=== PATIENT | female | born 1945 | race Two or more races ===

== ENCOUNTER 2024-12-22 11:50 | Emergency (ER) | payer OTHER ==
[~2024-12-22] VITALS: Ht 170.2 cm; Wt 59.0 kg
--- NOTE | 2024-12-22 12:08 | ED.PDOC ---
History of Present Illness HPI Comments Natalie Means is a 79-year-old female brought in by ambulance with chief complaint of 2hrs ago presenting episode of generalized weakness. The patient report she started feeling dizzy and she felt weakness on her legs. The EMS team report found the patient alert but weak, BP was 72/40mmhg, IV fluid were started on the way to the ED, 500 cc of NS were administrated. The patient denies focal motor or neurologic deficits, chest pain, headache, abdominal pain or other symptoms. On the ED: BP was 142/85mmHg. HR: 64bpm, blood glucose: 96mg/dl. The patient will be assessed. past medical history of Afib, pacemaker CVA x2 (2021) and CHF Attestation note: Dr. Lobo: I was the supervising attending for this ED encounter. Please see the resident's notes. I was available for questions and consultations. Differential diagnosis: Includes but not limited to thyroid disease, encephalopathy, electrolyte abnormality, sepsis, infection, intracranial pathology, drug adverse effects, arrhythmia, kidney insufficiency, ACS, CVA, malignancy, anemia MDM: patient presented with the above HPI.-generalized weakness-----workup was initiated. patient was found with the above mentioned diagnosis. the following medications were ordered: please refer to order lists of meds and tests obtained by myself Dr. Lobo. Patient ED course and VS have been stabilized. Patient has been reassessed in the ED and remained in a stable condition. Pertinent incidental findings were discussed with the patient and/or family. Patient/family voices understanding and is agreeable with plan. Patient has been observed in the ED adequate length of time to insure improvement/stability. Escalation of care considered: Consideration of escalation to observation or admission Orthostatics were obtained that were unremarkable. Patient is ambulatory in the ED and back to her baseline. Family member at bedside. Patient received fluid hydration earlier which brought her vital signs back to stable. She is no longer symptomatic. Patient was DISCHARGED home in a stable condition. All the reports of any imaging studies that were ordered by myself were reviewed by myself. 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 SOCIAL Hx Family History Family History: Reviewed,noncontributory to illness Social History Smoker: Non-Smoker Alcohol: Denies ETOH Use Drugs: Denies Drug Use Lives In: Home Constitutional: reports: weakness; denies: chills, diaphoresis, fatigue, fever, malaise, sweats, others EENTM: denies: blurred vision, double vision, ear bleeding, ear discharge, ear drainage, ear pain, ear ringing, eye pain, eye redness, hearing loss, mouth pain, mouth swelling, nasal discharge, nose bleeding, nose congestion, nose pain, photophobia, tearing, throat pain, throat swelling, voice changes, others Respiratory: denies: cough, hemoptysis, orthopnea, SOB at rest, shortness of breath, SOB with excertion, stridor, wheezing, others Cardiovascular: denies: chest pain, dizzy spells, diaphoresis, Dyspnea on exertion, edema, irregular heart beat, left arm pain, lightheadedness, palpitations, PND, syncope, others Gastrointestinal: denies: abdomen distended, abdominal pain, blood streaked bowels, constipated, diarrhea, dysphagia, difficulty swallowing, hematemesis, melena, nausea, poor appetite, poor fluid intake, rectal bleeding, rectal pain, vomiting, others Genitourinary: denies: abnormal vagina bleeding, burning, dyspareunia, dysuria, flank pain, frequency, hematuria, incontinence, pain, , vagina discharge, urgency, others Neurological: reports: dizziness; denies: fainting, headache, left sided numbness, left sided weakness, numbness, paresthesia, pre-existing deficit, right sided numbness, right sided weakness, seizure, speech problems, tingling, tremors, weakness, others Musculoskeletal: denies: back pain, gout, joint pain, joint swelling, muscle pain, muscle stiffness, neck pain, others Integumetry: denies: bruises, change in color, change in hair/nails, dryness, laceration, lesions, lumps, rash, wounds, others Allergic/Immunocompromised: denies: Difficulty Healing, Frequent Infections, Hives, Itching, others Hematologic/Lymphatic: denies: anemia, blood clots, easy bleeding, easy bruising, swollen glands, others Physical Exam Exam Comments Alert, oriented x3, Orthostatic VS WNL, Normal gait Patient back to baseline General Appearance: No Apparent Distress, Normal HEENT: Normal ENT Inspection, Pharynx Normal, TMs Normal Neck: Full Range of Motion, Non-Tender, Normal, Normal Inspection Respiratory: Chest Non-Tender, Lungs Clear, No Accessory Muscle Use, No Respiratory Distress, Normal Breath Sounds Cardiovascular: No Edema, No JVD, No Murmur, No Gallop, Normal Peripheral Pulses, Regular Rate/Rhythm Breast Exam: Deferred Gastrointestinal: No Organomegaly, Non Tender, No Pulsatile Mass, Normal Bowel Sounds, Soft Genitalia: Deferred Pelvic: Deferred Rectal: Deferred Extremities: No calf tenderness, Normal capillary refill, Normal inspection, Normal range of motion, Non-tender, No pedal edema Musculoskeletal : Apperance: Normal Neurologic: Alert, lathmaker II-XII nml as Tested, No Motor Deficits (No motor or neurologicc deficit on face and all 4 extremities. ), Normal Affect, Normal Mood, No Sensory Deficits, Other (Gait: the patient walk with out difficulty. Orthostatic VS WNL. ) Cerebellar Function: Normal Reflexes: Normal Skin: Dry, Normal Color, Warm Lymphatic: No Adenopathy Was a procedure done? Was a procedure done?: No Differential Dx Considerations may include: #Near syncope #Hypotension #Vasovagal reflex X-Ray, Labs, Meds, VS Vital Signs Date Time Temp Pulse Resp B/P (MAP) Pulse Ox O2 Delivery O2 Flow Rate FiO2 12/22/24 14:55 65 18 120/63 (82) 96 12/22/24 14:50 70 16 128/74 (92) 96 12/22/24 14:45 66 19 115/68 (84) 96 12/22/24 13:05 97.7 63 10 138/77 (97) 95 97.7 12/22/24 13:05 Room Air* 0 21 12/22/24 12:20 68 16 97 Room Air* 0 21 12/22/24 12:20 97.7 68 16 135/58 (83) 97 97.7 10/4/25 11:53 97.5 64 18 142/85 95 97.5 12/22/24 11:51 68 Lab Test 12/22/24 13:30 12/22/24 12:40 12/22/24 12:37 Range/Units Troponin I High Sensitivity 3 L 3 L </=34 ng/L Urine Color Yellow Yellow Urine Clarity Clear Clear Urine pH 5.5 5.0-9.0 Urine Specific [place] 1.020 1.001-1.035 Urine Protein Negative Negative Urine Ketones Negative Negative Urine Blood Negative Negative /uL Urine Nitrite Negative Negative Urine Bilirubin Negative Negative Urine Urobilinogen Normal Negative mg/dL Urine Leukocyte Esterase 3+ Negative /uL Urine RBC 2 0 - 4 /hpf Urine Microscopic WBC 15 H 0-5 /HPF Urine Squamous Epithelial Cells Few <5 /hpf Urine Bacteria Few H None Seen /hpf Urine Glucose Normal Normal mg/dL White Blood Count 4.8 4.4-10.8 10^3/uL Red Blood Count 4.14 4.0-5.20 10^6/uL Hemoglobin 12.2 12.2-16.2 g/dL Hematocrit 36.8 36.0-46.0 % Mean Corpuscular Volume 88.8 80.0-100.0 fL Mean Corpuscular Hemoglobin 29.5 28.0-32.0 pg Mean Corpuscular Hemoglobin Concent 33.2 32.0-36.0 g/dL Red Cell Distribution Width 15.7 H 11.8-14.3 % Platelet Count 144 140-450 10^3/uL Mean Platelet Volume 9.2 6.9-10.8 fL Neutrophils (%) (Auto) 69.5 37.0-80.0 % Lymphocytes (%) (Auto) 17.7 10.0-50.0 % Monocytes (%) (Auto) 9.1 0.0-12.0 % Eosinophils (%) (Auto) 3.3 0.0-7.0 % Basophils (%) (Auto) 0.4 0.0-2.0 % Neutrophils # (Auto) 3.4 1.6-8.6 10 ^3/uL Lymphocytes # (Auto) 0.9 0.4-5.4 10 ^3/uL Monocytes # (Auto) 0.4 0-1.3 10 ^3/uL Eosinophils # (Auto) 0.2 0-0.8 10 ^3/uL Basophils # (Auto) 0 0-0.2 10 ^3/uL Nucleated Red Blood Cells 0.0 % Sodium Level 143 136-145 mmol/L Potassium Level 4.0 3.5-5.1 mmol/L Chloride Level 108 H 98-107 mmol/L Carbon Dioxide Level 26 20-31 mmol/L Anion Gap 9 5-15 Blood Urea Nitrogen 19 9-23 mg/dL Creatinine 0.95 0.550-1.02 mg/dL Glomerular Filtration Rate Calc 61 >90 mL/min BUN/Creatinine Ratio 20.0 10.0-20.0 Serum Glucose 96 74-106 mg/dL Lactic Acid Level 1.2 0.4-2.0 mmol/L Calcium Level 9.0 8.7-10.4 mg/dL Total Bilirubin 0.9 0.2-1.0 mg/dL Aspartate Amino Transferase (AST) 36 13-40 U/L Alanine Aminotransferase (ALT) 28 7-40 U/L Alkaline Phosphatase 98 46-116 U/L B-Type Natriuretic Peptide 280.98 0-100 pg/mL Total Protein 7.3 5.7-8.2 g/dL Albumin 4.2 3.2-4.8 g/dL X-Ray, Labs, Meds, VS Comment 12:35 The patient was reassessed. The patient is alert x3 Alert, oriented x3, Normal gait Patient back to baseline VS: WNL CBC: Hb:12.2mg/dl WBC: 4.8x10e3/ul. CMP: Unremarkable Troponin: <3 14:00 UA Positive for UTI Orthostatic VS: WNL Time of 1ST Reevaluation: 12:35 Reevaluation 1ST: Improved Time of 2ND Reevaluation: 14:00 Reevaluation 2ND: Improved Patient Education/Counseling: Diagnosis, Treatment, Prognosis, Need For Follow Up Family Education/Counseling: Diagnosis, Treatment, Prognosis, Need For Follow Up SEPSIS Sepsis Screen Recent Procedure: No On Antibiotic Therapy: No Respiratory Rate >20: No Heart Rate >90: No Temp<36 C (96.8 F) or >38.3 C: No SBP <90 or MAP <65 mmHG: No New Acute Mental Status Change: No Is the patient on CPAP, BIPAP,: No IV fluid challenge completed?: No Physician Orders Electrocardigram (12/22/24 11:55) [facility] (12/22/24 ) Chest Portable (12/22/24 12:27) Orthostatic Vital Signs (12/22/24 14:12) Vital Signs Date Time Temp Pulse Resp B/P (MAP) Pulse Ox O2 Delivery O2 Flow Rate FiO2 12/22/24 14:55 65 18 120/63 (82) 96 12/22/24 14:50 70 16 128/74 (92) 96 12/22/24 14:45 66 19 115/68 (84) 96 12/22/24 13:05 97.7 63 10 138/77 (97) 95 97.7 12/22/24 13:05 Room Air* 0 21 12/22/24 12:20 68 16 97 Room Air* 0 21 12/22/24 12:20 97.7 68 16 135/58 (83) 97 97.7 12/22/24 11:53 97.5 64 18 142/85 95 97.5 12/22/24 11:51 68 Laboratory Tests Test 12/22/24 12:37 Lactic Acid Level 1.2 mmol/L (0.4-2.0) White Blood Count 4.8 10^3/uL (4.4-10.8) Departure 1 Departure Time of Disposition: 15:06 Impression: Primary Impression: Hypotensive episode Additional Impression: UTI (urinary tract infection) Disposition: 01 HOME / SELF CARE / HOMELESS Condition: Stable Additional Instructions: Additional instructions: Please read all instructions provided in this packet carefully. You MUST follow-up with your primary care/family doctor in 1 to 2 days. If you are unable to see your primary care/family doctor, please return to our emergency room for re-assessment and re-evaluation in 1 to 2 days. Return to the emergency room here in our facility or to the nearest ER [facility] if your symptoms change or worsen. CONSULTATIONS: you MUST Follow-up for consultation as soon as possible with: cardiology in 1-2 days. Please call for appointment. You MUST call the consultants office yourself to make an appointment. You may need to arrange that through your insurance and/or your primary/family doctor. If you are unable to see the technical services consultant in 1 to 2 days, you must return to our emergency room (or any other ER of your choice) for re-assessment and re- evaluation. Adequate fluid hydration. Although you have been discharged from the Emergency Department, this does not mean that you have a "clean bill of health". No definitive diagnosis for your symptoms has been made today. It is possible that you are in the process of developing a serious illness. This is why you must return to the ED without fail if any new or worsening symptoms develop. Fall precautions. Check your blood pressure at home at least 3 times a day. Below is a copy of your radiological report for follow up: [address] [address] Ph: [phone] DIAGNOSTIC IMAGING Diagnostic Imaging Report : [id number] Signed PATIENT: NATALIE CRUZ ACCT: [id number] UNIT: [id number] : 1945 LOC: ER ROOM / BED: / AGE / SEX: 79 / F ADM STATUS: REG ER SERVICE 1227 ORDERING PHYSICIAN: JOEL LOBO DO PROCEDURE(s): CXRP - CHEST PORTABLE REASON: gen weak, hypotension ORDER NUMBER(s): [id number], ACCESSION NUMBER(s): [id number] CHEST RADIOGRAPH Indication: gen weak, hypotension Technique: Single frontal view of the chest was obtained COMPARISON: None FINDINGS: Pacemaker/AICD in the left upper chest with a single cardiac lead Lungs: Clear Pleura: No effusion. No pneumothorax. Cardiomediastinal contours: Mild cardiomegaly Bones: Unremarkable IMPRESSION: 1. No acute cardiopulmonary disease. ATED BY: LEONEL BLANC MD DICTATED DATE/TIME: 12/22/24 131 SIGNED BY: LEONEL BLANC MD SIGNED DATE/TIME: 12/22/24 1310 CC: e-Prescriptions Nitrofurantoin Monohydrate Mac (Macrobid) 100 Mg Cap 100 MG PO BID for 7 Days, #14 CAP Prov: JOEL LOBO DO 12/22/24 Discharged With: Self Comments Goals of care discussed with the patient > 35 min. Discussed plan of care with Dr. Lobo Code status: Full code PCP: does not recall name Plan discussed with: Patient, the patient agrees with the plan. Critical Care Note Critical Care Time?: Yes (35 min-critical care time only) Stability Stability form required: No Heart Score Heart Score: Heart Score Response (Comments) Value History Slightly Suspicious 0 EKG Normal 0 Age >65 2 Risk Factors 1 or 2 risk factors 1 Troponin Normal limit 0 Total 3 STONE CALLE Dec 22, 2024 12:08 JOEL LOBO DO Dec 22, 2024 15:07
[2024-12-22 12:20] VITALS: PULSE 68; RESP 16; O2SAT 97
[2024-12-22 12:50] LABS: Hematocrit 36.8 % (36.0-46.0); Hemoglobin 12.2 g/dL (12.2-16.2); Mean Corpuscular Hemoglobin 29.5 pg (28.0-32.0); Mean Corpuscular Volume 88.8 fL (80.0-100.0); Nucleated Red Blood Cells % 0.0 %
[2024-12-22 13:05] VITALS: TEMP 97.7
[2024-12-22 13:06] LABS: Alanine Aminotransferase 28 U/L (7-40); Albumin 4.2 g/dL (3.2-4.8); Alkaline Phosphatase 98 U/L (46-116); Anion Gap 9 (5-15); BUN/Creatinine Ratio 20.0 (10.0-20.0); Bilirubin, Total 0.9 mg/dL (0.2-1.0); Blood Urea Nitrogen 19 mg/dL (9-23); Carbon Dioxide 26 mmol/L (20-31); Glucose 96 mg/dL (74-106); Potassium 4.0 mmol/L (3.5-5.1); Sodium 143 mmol/L (136-145); Total Protein 7.3 g/dL (5.7-8.2)
[2024-12-22 13:08] LABS: Chloride 108 mmol/L (98-107)
[2024-12-22 13:12] LABS: Calcium 9.0 mg/dL (8.7-10.4)
--- NOTE | 2024-12-22 13:13 | DVH ---
CHEST RADIOGRAPH Indication: gen weak, hypotension Technique: Single frontal view of the chest was obtained COMPARISON: None FINDINGS: Pacemaker/AICD in the left upper chest with a single cardiac lead Lungs: Clear Pleura: No effusion. No pneumothorax. Cardiomediastinal contours: Mild cardiomegaly Bones: Unremarkable IMPRESSION: 1. No acute cardiopulmonary disease.
[2024-12-22 14:19] LABS: Urine Protein, UAD Negative (Negative)
[2024-12-22 14:55] VITALS: BP 120/63; PULSE 65; RESP 18; O2SAT 96
[2024-12-22] MEDS ORDERED: NITR-87 PO (15:07)
--- NOTE | 2024-12-31 09:07 | ECG ---
[facility] Test Date: 2024-12-22 Test Time: 11:51:02 Pat Name: HARPREET LUIS Department: Room: Gender: F Ship'S Engineer: BELLA : 1945 Requested By: STONE CALLE Order Number: [id number] Reading MD: Claudio Evans Measurements Intervals [place] Rate: 66 P: 0 NM: 0 QRS: 75 QRSD: 103 T: 82 QT: 458 QTc: 480 Interpretive Statements Atrial fibrillation Anterior infarct, old Electronically Signed On 01-01-2025 15:06:19 PDT by Claudio Evans Please click the below link to view image of tracing.
== END 2024-12-22 15:20 | disposition home or self-care (01) ==
LOC: EDBD 11:50 → ER 11:50
DX: N39.0 Urinary tract infection, site not specified (principal); I95.9 Hypotension, unspecified; I48.91 Unspecified atrial fibrillation; Z86.73 Personal history of transient ischemic attack (TIA), and cerebral infarction without residual deficits; Z95.0 Presence of cardiac pacemaker; Z79.899 Other long term (current) drug therapy
CPT/HCPCS: 36415; 71045; 80053; 81001; 83605; 83880; 84484; 85025; 93005